=== PATIENT | female | born 1975 | race Asian ===

== ENCOUNTER → 2017-12-10 09:06 | Outpatient (CLI) | payer OTHER, SELFPAY ==
[2017-12-10 10:26] LABS: HEMOLYSIS < 15 (0-50); Iron 56 ug/dL (37-170)
[2017-12-10 10:38] LABS: Percent Iron Saturation 12 % (15-50); Total Iron Binding Capacity 451 ug/dL (265-497); Transferrin 349 mg/dL (206-381)
[2017-12-10 10:46] LABS: Vitamin D 25 Hydroxy (D3) 22.4 ng/mL (30.0-100.0)
[2017-12-10 10:51] LABS: Follicle Stimulating Hormone 6.27 mIU/mL
[2017-12-10 10:59] LABS: Thyroid Stimulating Hormone 4.28 uIU/mL (0.47-4.68)
[2017-12-10 11:04] LABS: Cancer Antigen 125 < 6 U/mL (0-35)
[2017-12-10 11:08] LABS: Ferritin 8.4 ng/mL (6.27-137)
== END ==
PROVIDERS: PCP Family Medicine; Visit Provider Internal Medicine
DX: R53.83 Other fatigue (principal); R14.0 Abdominal distension (gaseous); E61.1 Iron deficiency; E55.9 Vitamin D deficiency, unspecified
CPT/HCPCS: 36415; 82306; 82728; 83001; 83540; 83550; 84443; 86304

== ENCOUNTER → 2019-03-17 11:47 | Outpatient (CLI) | payer OTHER, SELFPAY ==
--- NOTE | 2019-03-17 11:49 | DI.RAD.S_ITS ---
PROCEDURE: XR KNEE LT 3V INDICATIONS: pain TECHNIQUE: 3 views of the knee were acquired. COMPARISON: None. FINDINGS: Bones: No fractures or dislocations. No suspicious bony lesions. Mild tricompartmental degenerative changes of the left knee noted. Soft tissues: No joint effusion. There is a punctate soft tissue calcification in the distal posterolateral left thigh. IMPRESSION: Mild tricompartmental degenerative changes of the left knee. Dictated by: Sukumar Swanson M.D. on 03/17/2019 at 14:42 Approved by: Sukumar Swanson M.D. on 03/17/2019 at 14:44
== END ==
PROVIDERS: PCP Family Medicine; Visit Provider Family Medicine
DX: M25.562 Pain in left knee (principal)
CPT/HCPCS: 73562

== ENCOUNTER → 2019-04-03 17:38 | Outpatient (CLI) | payer OTHER, SELFPAY ==
--- NOTE | 2019-04-03 17:40 | DI.MRI.S_ITS ---
PROCEDURE: MR KNEE LT WO CON INDICATIONS: Posterior left knee pain TECHNIQUE: Noncontrast sagittal PD fast spin echo and T2 fast spin echo with fat saturation, sagittal 3-D FLASH with fat saturation; coronal T1 spin echo and PD fast spin echo with fat saturation, and axial PD fast spin echo with fat saturation through the knee. COMPARISON: None. FINDINGS: Image quality: Excellent. Menisci: There is an oblique tear involving the posterior horn of medial meniscus extending to inferior articulating surface. No evidence of focal lateral meniscal tear. The meniscal root ligaments appear intact. Cruciate ligaments: The anterior and posterior cruciate ligaments appear intact. Medial structures: Local moderate grade MCL sprain is seen. The posterior oblique ligament, semimembranosus tendon insertions, oblique popliteal ligament, and meniscocapsular junction appear intact. Visualized portions of the pes anserinus tendons appear normal. No abnormal bursal fluid. Lateral structures: The lateral collateral ligament, long and short heads of the biceps femoris tendon appear intact. The popliteus tendon appears normal; the popliteofibular ligament appears intact. The posterosuperior and anteroinferior popliteomeniscal fascicles appear intact. The arcuate and fabellofibular ligaments appear intact, on either side of the lateral inferior geniculate artery. Iliotibial band appears normal. Anterior structures: The quadriceps and patellar tendons appear intact. Patellar alignment is normal. No femoral trochlear dysplasia or ventral trochlear prominence. No edema in the infrapatellar fat pad. 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 Chondromalacia involving apex of patella cartilage is also noted. Articulating cartilage and lateral femoral tibial compartment is intact. Joint space: There is moderate amount of joint fluid, no gross loose body. A 4.2 x 3.3 x 8.2 cm popliteal cyst is noted. Normal appearing synovial plicae are incidentally noted. IMPRESSION: 1. Subtle oblique tear involving the posterior horn of medial meniscus extending to inferior articulating surface. 2. No evidence of focal lateral meniscal tear. 3. 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 Low-grade chondromalacia involving apex of patella cartilage. 4. Cruciate ligaments are intact. Low to moderate MCL sprain. 5. Moderate amount of joint fluid enlarged popliteal cyst as above. Dictated by: Chris Sumner M.D. on 04/04/2019 at 8:11 Approved by: Chris Sumner M.D. on 04/04/2019 at 8:14
== END ==
PROVIDERS: PCP Family Medicine; Visit Provider Family Medicine
DX: M25.562 Pain in left knee (principal); S83.242A Other tear of medial meniscus, current injury, left knee, initial encounter; S83.412A Sprain of medial collateral ligament of left knee, initial encounter; M17.12 Unilateral primary osteoarthritis, left knee; M22.42 Chondromalacia patellae, left knee; M71.22 Synovial cyst of popliteal space [Baker], left knee
CPT/HCPCS: 73721

== ENCOUNTER → 2019-04-14 12:33 | Outpatient (CLI) | payer OTHER, SELFPAY ==
[2019-04-14 12:39] LABS: Bacteria Urine None Seen
[2019-04-14 13:02] LABS: Add Manual Diff / Slide Review NO; Basophils Absolute Auto 100 /uL (0-100); Basophils Percent Auto 0.7 % (0-2); Eosinophils Absolute Auto 100 /uL (0-450); Eosinophils Percent Auto 1.1 % (2-4); Hematocrit 35.7 % (36-46); Hemoglobin 11.5 g/dL (12.0-16.0); Lymphocytes Absolute Auto 3100 /uL (1100-4500); Lymphocytes Percent Auto 24.9 % (25-40); Mean Corpuscular HGB Conc 32.1 % (30-36); Mean Corpuscular Hemoglobin 23.9 PG (26-34); Mean Corpuscular Volume 74.4 fL (80-100); Monocytes Absolute Auto 900 /uL (0-900); Monocytes Percent Auto 7.2 % (3-14); Neutrophils Absolute Auto 8100 /uL (1500-7000); Neutrophils Percent Auto 66.1 % (50-75); Platelet Count 404 X10^3/uL (150-400); Red Cell Distribution Width 15.2 % (11.6-14.8); White Blood Cell Count 12.3 X10^3/uL (4.5-11.0)
[2019-04-14 13:03] LABS: Appearance Urine UA SL CLOUDY; Bilirubin Urine UA NEGATIVE (NEGATIVE); Color Urine UA YELLOW; Glucose Urine UA NEGATIVE (Negative); Ketones Urine UA NEGATIVE (NEGATIVE); Leukocyte Esterase Urine UA NEGATIVE (NEGATIVE); Nitrite Urine UA NEGATIVE (Negative); Occult Blood Urine UA 3+ (Negative); Protein Urine UA NEGATIVE (Negative); Specific Gravity Urine UA <=1.005 (1.000-1.035); Urobilinogen Urine UA 0.2 E.U./dL (0.2)
[2019-04-14 14:37] LABS: RBC Urine 30-100/HPF (0-5/HPF)
[2019-04-14 14:38] LABS: Culture Indicated Urine Cult Not Indicated; Squamous Epithelial Cell Urine 1-5 /HPF (0-5/HPF); WBC Urine 0-1/HPF (0-5/HPF)
== END ==
PROVIDERS: PCP Family Medicine; Visit Provider Family Medicine
DX: N92.0 Excessive and frequent menstruation with regular cycle (principal); N92.6 Irregular menstruation, unspecified; Z87.42 Personal history of other diseases of the female genital tract; N92.3 Ovulation bleeding
CPT/HCPCS: 36415; 81001; 85025

== ENCOUNTER → 2019-04-15 09:42 | Outpatient (CLI) | payer OTHER, SELFPAY ==
--- NOTE | 2019-04-15 09:44 | DI.US.S_ITS ---
PROCEDURE: US PELVIC COMPLETE INDICATIONS: SPOTTING BETWEEN MENSES, HX OF PCOS TECHNIQUE: Real-time scanning was performed of the pelvic organs, with image documentation. Additional endovaginal scanning was necessary due to incomplete visualization of the adnexal and endometrial structures by transabdominal scanning. COMPARISON: None. FINDINGS: Transabdominal scanning: Limited scanning through the kidneys shows no hydronephrosis. No pathologic free abdominal or pelvic fluid. Endovaginal scanning: Uterus: Uterus is normal in size at 8.5 x 4.8 x 6.0 cm. The endometrium measures 10.7 mm in combined thickness and is mildly heterogeneous. Mild vascularity involving the endometrium Ovaries: Normal size measures 3.4 x 2.1 x 2.3 cm on the right and 2.9 x 1.7 x 2.7 cm on the left. Multiple bilateral subcentimeter follicular cyst, right greater than left. Small amount of free fluid adjacent to the right ovary. IMPRESSION: Multiple bilateral subcentimeter cysts which can be associated with polycystic ovarian syndrome. Recommend clinical correlation. Mild vascularity and heterogeneity of the endometrium. Recommend short-term followup pelvic ultrasound in 6 weeks to assess for interval changes. Dictated by: Wilmer SAINZ Interpreted: Nubia Park MD on 04/15/2019 at 10:55 Approved by: Nubia Park M.D. on 04/15/2019 at 12:48
== END ==
PROVIDERS: PCP Family Medicine; Visit Provider Family Medicine
DX: N92.6 Irregular menstruation, unspecified (principal); N92.3 Ovulation bleeding; E28.2 Polycystic ovarian syndrome
CPT/HCPCS: 76830; 76856

== ENCOUNTER → 2019-04-22 11:38 | Outpatient (CLI) | payer OTHER, SELFPAY ==
[2019-04-22 12:26] LABS: Add Manual Diff / Slide Review NO; Basophils Absolute Auto 100 /uL (0-100); Basophils Percent Auto 0.6 % (0-2); Eosinophils Absolute Auto 100 /uL (0-450); Eosinophils Percent Auto 1.3 % (2-4); Hematocrit 32.5 % (36-46); Hemoglobin 10.5 g/dL (12.0-16.0); Lymphocytes Absolute Auto 2400 /uL (1100-4500); Lymphocytes Percent Auto 23.2 % (25-40); Mean Corpuscular HGB Conc 32.3 % (30-36); Mean Corpuscular Hemoglobin 24.2 PG (26-34); Mean Corpuscular Volume 74.9 fL (80-100); Monocytes Absolute Auto 700 /uL (0-900); Monocytes Percent Auto 6.6 % (3-14); Neutrophils Absolute Auto 7100 /uL (1500-7000); Neutrophils Percent Auto 68.3 % (50-75); Platelet Count 389 X10^3/uL (150-400); Red Blood Cell Count 4.35 X10^6/uL (4.0-5.2); Red Cell Distribution Width 15.4 % (11.6-14.8); White Blood Cell Count 10.4 X10^3/uL (4.5-11.0)
== END ==
PROVIDERS: PCP Family Medicine; Visit Provider Obstetrics & Gynecology
DX: N92.0 Excessive and frequent menstruation with regular cycle (principal)
CPT/HCPCS: 36415; 85025

== ENCOUNTER 2019-06-13 08:43 | Day surgery (SDC) | payer OTHER, SELFPAY ==
[2019-06-09 13:16] VITALS: BMI 34.0
[2019-06-13] VITALS (7 sets, daily range): BP systolic 93–127; BP diastolic 59–80; PULSE 58–80; RESP 15–20; TEMP 36.2–36.6; O2SAT 94–100; BMI 34.0
--- NOTE | 2019-06-13 | PATH_ITS ---
[facility] Accession Number: [id number] . 01 Material submitted: . endometrium - ENDOMETRIAL CURETTINGS/POLYP . 02 Diagnosis: Endometrial Curettings/Polyp: Portions of weakly proliferative and disordered proliferative endometrium; negative for glandular hyperplasia, cytologic atypia, and malignancy. Most tissue fragments demonstrate a pseudodecidualized stromal change, suggestive of exogenous hormone effect. Portion of endometrial polyp (1.6 cm); negative for glandular hyperplasia, cytologic atypia, and malignancy. MRV 06/16/2019 1604 Local . 02 Electronically signed: . Francisca Mejia MD, Pathologist NPI- [id number] . 01 Gross description: . Received in formalin, labeled with the patient's name Dang Dennis and endometrial curettings/polyp, are multiple fragments of rutledge, soft tissue measuring 2.5 x 1.5 x 0.7 cm in aggregate and one piece of rutledge, soft tissue measuring 1.6 x 1.2 x 0.6 cm. The fragments are entirely submitted in cassettes A1 and A2 in aggregate. The piece of tissue is entirely submitted in cassette A3. ([id number]) /FRR 06/14/2019 0942 Local . 02 Pathologist provided ICD-10: N93.9 . 02 CPT . 079264 Performed at: 01 [facility] [address] [place] [id number] MD Sulaiman Mcghee MD Phone: [phone] Performed at: 02 [facility] [address] [place], [place] [id number] MD Brittaney Lynn MD Phone: [phone]
[2019-06-13] MEDS: LACTATED RINGERS 1,000 ML 42 ML IV (09:04)
--- NOTE | 2019-06-13 09:28 | PM.PREOP ---
Pre-operative Note Interval Note History & Physical reviewed/Exam performed by Physician: Yes Changes to H&P: No
--- NOTE | 2019-06-13 09:38 | SUR.PREOP ---
Patient ambulating to bathroom to provide urine specimen for test.
--- NOTE | 2019-06-13 10:11 | SUR.OPER ---
Lithotomy on padded OR bed, head on pillow, arms secured on padded arm boards at <90 degrees abduction. Legs secured in padded yellow fins stirrups. Safety strap secured across abdomen
--- NOTE | 2019-06-13 11:06 | PM.OP.1 ---
Operative Date/Time/Diagnoses Date of procedure: 06/13/19 Time of procedure: 09:45 Pre-op diagnosis: Endometrial polyp Post-op diagnosis: same Procedure & Clinicians Procedure: Operative hysteroscopy with polypectomy, dilation and curettage Same procedure as scheduled: Yes Indications: endometrial polyp with abnormal uterine bleeding Surgeon: Gin Be Bus Driver School: [employer] Sainz Anesthesia Type: MAC +/- Operative Notes Findings: Retroverted uterus. Large endometrial polyp on hysteroscopy. Normal vulva and vagina. IV fluids: 900cc crystalloid Fluid deficit: 100ccs sorbitol Specimen(s): other (endometrial polyp/curettings) Estimated Blood Loss (mL): 10 Procedure in detail: Patient was taken operating room after proper consents were obtained. She was placed in the dorsal lithotomy position and prepped and draped in the normal sterile fashion. The patient had voided just prior to transfer, and had a negative urine test. A speculum was inserted in the vagina, and the cervix located. A single-tooth tenaculum was placed on the anterior lip of the cervix. The speculum was removed, and a right angle retractor used in the posterior fourchette for for visualization. Hegar dilators were used to serially dilate the cervix to 8 mm. The operative hysteroscope was inserted through the cervix, and the uterine cavity distended with sorbitol after clearance of clot. The above findings of a large endometrial polyp attached to the fundal and posterior young of the endometrial cavity were noted. The resectoscope was attached to the hysteroscope, and hysteroscope reintroduced and used to remove part of the polyp. Given the polyp size, the hysteroscope was removed and a polyp forceps used to grasp and remove the large part of the polyp. A gentle dilation and curettage was performed with further removal of polyp tissue. The hysteroscope was reintroduced, and it was noted that the polyp was now absent with a clean endometrial cavity. The hysteroscope was removed, and good hemostasis was noted. The tenaculum was removed from the anterior lip of the cervix with good hemostasis. The retractor was removed from the vagina. The patient was transported to the PACU in stable condition. Complications: none Post-operative Condition: stable Disposition: PACU Plan for aftercare: Patient for discharge home with routine follow up.
== END 2019-06-13 11:34 | disposition home or self-care (01) ==
PROVIDERS: PCP Family Medicine; Visit Provider Obstetrics & Gynecology
PROC: 0UDB8ZZ Extraction of Endometrium, Via Natural or Artificial Opening Endoscopic (ICD-10-PCS; CPT 58558; principal; 2019-06-13 09:45)
DX: N93.9 Abnormal uterine and vaginal bleeding, unspecified (principal); N84.0 Polyp of corpus uteri
CPT/HCPCS: 58558; J1100; J1885; J2405; J2704; J3010

== ENCOUNTER → 2019-06-20 13:11 | Outpatient (CLI) | payer OTHER, SELFPAY ==
[2019-06-20 13:53] LABS: Hematocrit 32.1 % (36-46); Hemoglobin 10.4 g/dL (12.0-16.0)
== END ==
PROVIDERS: PCP Family Medicine; Visit Provider Obstetrics & Gynecology
DX: N93.9 Abnormal uterine and vaginal bleeding, unspecified (principal)
CPT/HCPCS: 36415; 85014; 85018

== ENCOUNTER → 2019-07-09 11:08 | Outpatient (CLI) | payer OTHER, SELFPAY ==
[2019-07-09 11:35] LABS: WBC Urine None Seen (0-5/HPF)
[2019-07-09 14:26] LABS: Appearance Urine UA CLEAR; Bilirubin Urine UA NEGATIVE (NEGATIVE); Color Urine UA YELLOW; Glucose Urine UA NEGATIVE (Negative); Ketones Urine UA NEGATIVE (NEGATIVE); Leukocyte Esterase Urine UA NEGATIVE (NEGATIVE); Nitrite Urine UA NEGATIVE (Negative); Occult Blood Urine UA TRACE-LYSED (Negative); Protein Urine UA NEGATIVE (Negative); Specific Gravity Urine UA <=1.005 (1.000-1.035); Urobilinogen Urine UA 0.2 E.U./dL (0.2)
[2019-07-09 14:41] LABS: RBC Urine 0-1/HPF (0-5/HPF); Squamous Epithelial Cell Urine 1-5 /HPF (0-5/HPF)
[2019-07-09 14:42] LABS: Bacteria Urine Few (2-10); Culture Indicated Urine Cult Not Indicated
== END ==
PROVIDERS: Family Provider Family Medicine; PCP Family Medicine; Visit Provider Obstetrics & Gynecology
DX: R33.9 Retention of urine, unspecified (principal)
CPT/HCPCS: 81001

== ENCOUNTER → 2019-12-22 12:08 | Outpatient (CLI) | payer OTHER, SELFPAY ==
--- NOTE | 2019-12-22 12:10 | DI.RAD.S_ITS ---
PROCEDURE: XR FOOT RT MIN 3V INDICATIONS: Joint pain TECHNIQUE: 3 views of the foot were acquired. COMPARISON: None. FINDINGS: Bones: No fractures or dislocations. No suspicious bony lesions. Marked plantar and calcaneal spurring. Diffuse hindfoot and midfoot degenerative sclerosis and spurring. Soft tissues: No tibiotalar joint effusion. Achilles tendon appears normal. IMPRESSION: Plantar and posterior calcaneal spurring. Diffuse hindfoot and midfoot joint degeneration. Dictated by: Campos Keene M.D. on 12/22/2019 at 14:29 Approved by: Campos Keene M.D. on 12/22/2019 at 14:32
--- NOTE | 2019-12-22 12:10 | DI.RAD.S_ITS ---
PROCEDURE: XR FOOT LT MIN 3V INDICATIONS: Joint pain TECHNIQUE: 3 views of the foot were acquired. COMPARISON: [facility], CR, FOOT COMP MIN 3VW (LT), 12/09/2014, 14:19. FINDINGS: Bones: No fractures or dislocations. No suspicious bony lesions. First MTP joint degeneration. Midfoot and hindfoot screw fixation, with multiple fractured screw fragments are again noted. There is plantar and posterior calcaneal spurring. Degenerative midfoot and hindfoot sclerosis and spurring. There is probable at least partial bridging ossification of the medial longitudinal arch, although not well seen Soft tissues: No tibiotalar joint effusion. Achilles tendon appears normal. IMPRESSION: Overall, grossly unchanged examination since 12/09/14. Dictated by: Campos Keene M.D. on 12/22/2019 at 14:20 Approved by: Campos Keene M.D. on 12/22/2019 at 14:26
--- NOTE | 2019-12-22 12:10 | DI.RAD.S_ITS ---
PROCEDURE: XR ANKLE RT MIN 3V INDICATIONS: Joint pain TECHNIQUE: 3 views of the ankle were acquired. COMPARISON: None. FINDINGS: Bones: No fractures or dislocations. Ankle mortise is normally aligned. No suspicious bony lesions. Large plantar and posterior calcaneal spur. Diffuse hindfoot and midfoot sclerosis and degenerative spurring. Soft tissues: No tibiotalar joint effusion. Achilles tendon appears normal. IMPRESSION: Large plantar and posterior calcaneal spur Dictated by: Campos Keene M.D. on 12/22/2019 at 14:37 Approved by: Campos Keene M.D. on 12/22/2019 at 14:38
--- NOTE | 2019-12-22 12:10 | DI.RAD.S_ITS ---
PROCEDURE: XR ANKLE LT MIN 3V INDICATIONS: Joint pain TECHNIQUE: 3 views of the ankle were acquired. COMPARISON: [facility], , XR FOOT LT MIN 3V, 12/22/2019, 12:20. FINDINGS: Bones: No fractures or dislocations. Ankle mortise is normally aligned. No suspicious bony lesions. There is screws fixation of the hindfoot and midfoot with grossly unchanged appearance. Several fractured screws are again noted. There is grossly unchanged alignment. Tibiotalar joint degeneration and plantar and posterior calcaneal spurring. Soft tissues: No tibiotalar joint effusion. Achilles tendon appears normal. IMPRESSION: Postsurgical changes as above. Grossly unchanged alignment. Dictated by: Campos Keene M.D. on 12/22/2019 at 14:26 Approved by: Campos Keene M.D. on 12/22/2019 at 14:29
--- NOTE | 2019-12-22 12:10 | DI.RAD.S_ITS ---
PROCEDURE: XR CERVICAL SPINE 2V OR 3V INDICATIONS: Joint pain TECHNIQUE: 3 view(s) of the cervical spine were acquired. COMPARISON: None. FINDINGS: Bones: No fractures or dislocations to the T1 level. The lateral masses of C1 appear intact on the odontoid view. No suspicious bony lesions. Interbody cage graft present at C6-C7 with anterior retaining pins. There is expected postoperative alignment. Straightening of the normal lordotic curvature. Multilevel degenerative endplate sclerosis and spurring. Diffuse facet arthropathy. Diffuse moderate narrowing of the remaining cervical disc spaces Soft tissues: No prevertebral soft tissue swelling. IMPRESSION: Postsurgical changes at C6-C7 as above. Expected postoperative alignment. Straightening of the normal lordotic curvature. Diffuse moderate cervical spondylosis and facet arthropathy Dictated by: Campos Keene M.D. on 12/22/2019 at 14:38 Approved by: Campos Keene M.D. on 12/22/2019 at 14:40
[2019-12-22 14:05] LABS: Add Manual Diff / Slide Review NO; Basophils Absolute Auto 100 /uL (0-100); Basophils Percent Auto 1.3 % (0-2); Eosinophils Absolute Auto 200 /uL (0-450); Eosinophils Percent Auto 1.4 % (2-4); Hematocrit 30.6 % (36-46); Hemoglobin 9.7 g/dL (12.0-16.0); Lymphocytes Absolute Auto 2600 /uL (1100-4500); Lymphocytes Percent Auto 23.3 % (25-40); Mean Corpuscular HGB Conc 31.6 % (30-36); Mean Corpuscular Hemoglobin 21.2 PG (26-34); Monocytes Absolute Auto 700 /uL (0-900); Monocytes Percent Auto 5.9 % (3-14); Neutrophils Absolute Auto 7600 /uL (1500-7000); Neutrophils Percent Auto 68.1 % (50-75); Platelet Count 444 X10^3/uL (150-400); Red Blood Cell Count 4.56 X10^6/uL (4.0-5.2); Red Cell Distribution Width 15.9 % (11.6-14.8); White Blood Cell Count 11.2 X10^3/uL (4.5-11.0)
[2019-12-22 14:26] LABS: Anisocytosis 1+; Poikilocytosis 2+
[2019-12-22 14:27] LABS: Microcytosis 1+; Ovalocytes 1+
[2019-12-22 15:38] LABS: Alanine Aminotransferase 13 IU/L (<35); Albumin 4.2 g/dL (3.5-5.0); Albumin Globulin Ratio 1.2 (1.0-2.8); Alkaline Phosphatase 53 U/L (38-126); Aspartate Aminotransferase 23 IU/L (14-36); BUN Creatinine Ratio 16.7 (6-22); Bilirubin Total 0.3 mg/dL (0.2-1.3); Blood Urea Nitrogen 11 mg/dL (7-17); Calcium 9.5 mg/dL (8.4-10.2); Carbon Dioxide 25 mmol/L (22-32); Chloride 104 mmol/L (98-107); Cholesterol 175 mg/dL (140-199); Estimated Glomerular Filt Rate > 60.0 mL/min (>60); Globulin 3.4 g/dL (1.7-4.1); Glucose 102 mg/dL (70-100); HDL Cholesterol 32 mg/dL (40-60); HEMOLYSIS < 15 (0-50); LDL Cholesterol Calculated 96 mg/dL (<100); Potassium 3.7 mmol/L (3.4-5.1); Sodium 137 mmol/L (137-145); Total Protein 7.6 g/dL (6.3-8.2); Triglycerides 235 mg/dL (35-150)
--- NOTE | 2019-12-30 13:09 | ONC.MSW ---
Description: Initial Referral Navigation Activity: Reviewed pt's referral for acuity, medical status, and immediate needs. Forwarded to scheduling for next available new consult time.
== END ==
PROVIDERS: Family Provider Family Medicine; PCP Family Medicine; Referring Provider Family Medicine; Visit Provider Family Medicine
DX: M25.50 Pain in unspecified joint (principal); D64.9 Anemia, unspecified; M47.812 Spondylosis without myelopathy or radiculopathy, cervical region; M77.31 Calcaneal spur, right foot; M19.072 Primary osteoarthritis, left ankle and foot; M19.071 Primary osteoarthritis, right ankle and foot; Z98.1 Arthrodesis status
CPT/HCPCS: 36415; 72040; 73610; 73630; 80053; 80061; 82728; 84443; 85025

== ENCOUNTER → 2019-12-22 17:18 | Outpatient (CLI) | payer OTHER, SELFPAY ==
[2019-12-22 20:02] LABS: Ferritin 5 ng/mL (6-137)
== END ==
PROVIDERS: Family Provider Family Medicine; PCP Family Medicine; Visit Provider Family Medicine
DX: D64.9 Anemia, unspecified (principal)
CPT/HCPCS: 82728

== ENCOUNTER → 2020-01-31 09:41 | Outpatient (CLI) | payer OTHER, SELFPAY ==
[2020-01-31 10:06] LABS: Add Manual Diff / Slide Review NO; Basophils Absolute Auto 100 /uL (0-100); Basophils Percent Auto 0.8 % (0-2); Eosinophils Absolute Auto 100 /uL (0-450); Eosinophils Percent Auto 1.2 % (2-4); Hematocrit 28.3 % (36-46); Hemoglobin 8.9 g/dL (12.0-16.0); Lymphocytes Absolute Auto 2000 /uL (1100-4500); Lymphocytes Percent Auto 21.2 % (25-40); Mean Corpuscular HGB Conc 31.4 % (30-36); Mean Corpuscular Hemoglobin 20.4 PG (26-34); Mean Corpuscular Volume 65.1 fL (80-100); Monocytes Absolute Auto 400 /uL (0-900); Monocytes Percent Auto 4.6 % (3-14); Neutrophils Absolute Auto 6700 /uL (1500-7000); Neutrophils Percent Auto 72.2 % (50-75); Platelet Count 437 X10^3/uL (150-400); Red Blood Cell Count 4.34 X10^6/uL (4.0-5.2); Red Cell Distribution Width 17.1 % (11.6-14.8); White Blood Cell Count 9.3 X10^3/uL (4.5-11.0)
[2020-01-31 10:15] LABS: Alanine Aminotransferase 15 IU/L (<35); Albumin Globulin Ratio 1.3 (1.0-2.8); Alkaline Phosphatase 62 U/L (38-126); Aspartate Aminotransferase 19 IU/L (14-36); BUN Creatinine Ratio 16.2 (6-22); Bilirubin Total 0.4 mg/dL (0.2-1.3); Blood Urea Nitrogen 11 mg/dL (7-17); Calcium 8.8 mg/dL (8.4-10.2); Carbon Dioxide 21 mmol/L (22-32); Chloride 108 mmol/L (98-107); Estimated Glomerular Filt Rate > 60.0 mL/min (>60); Globulin 3.1 g/dL (1.7-4.1); Glucose 153 mg/dL (70-100); HEMOLYSIS < 15 (0-50); Sodium 137 mmol/L (137-145); Total Protein 7.1 g/dL (6.3-8.2)
[2020-01-31 10:20] LABS: HEMOLYSIS < 15 (0-50); Iron 32 ug/dL (37-170)
[2020-01-31 10:23] LABS: Microcytosis 3+; Rouleaux 1+
[2020-01-31 10:31] LABS: Percent Iron Saturation 7 % (15-50); Total Iron Binding Capacity 473 ug/dL (265-497); Transferrin 365 mg/dL (206-381)
[2020-01-31 10:50] LABS: Ferritin 6 ng/mL (6-137)
== END ==
PROVIDERS: Family Provider Family Medicine; PCP Family Medicine; Referring Provider Internal Medicine Hematology & Oncology; Visit Provider Internal Medicine Hematology & Oncology
DX: D64.9 Anemia, unspecified (principal)
CPT/HCPCS: 36415; 80053; 82728; 83540; 83550; 85025

== ENCOUNTER → 2020-05-14 12:14 | Outpatient (CLI) | payer OTHER, SELFPAY ==
--- NOTE | 2020-05-14 12:15 | DI.US.S_ITS ---
PROCEDURE: US PELVIC COMPLETE INDICATIONS: Bleeding/IUD placement TECHNIQUE: Real-time scanning was performed of the pelvic organs, with image documentation. Additional endovaginal scanning was necessary due to incomplete visualization of the adnexal and endometrial structures by transabdominal scanning. COMPARISON: [facility], US, US PELVIC COMPLETE, 04/23/2020, 13:17. FINDINGS: Transabdominal scanning: Limited scanning through the kidneys shows no hydronephrosis. No pathologic free abdominal or pelvic fluid. Endovaginal scanning: Uterus: The uterus is retroverted measuring 8.4 x 6.1 x 6.3 cm. An IUD is seen within the cervix. The endometrium measures 8.4 mm in combined thickness. Ovaries: The right ovary measures 3.5 x 2.0 x 2.0 cm and has a normal appearance. The left ovary measures 2.4 x 1.7 x 1.5 cm and has a normal appearance. IMPRESSION: 1. IUD is seen within the cervix. 2. No acute abnormality. Dictated by: Bob Aguirre M.D. on 05/14/2020 at 14:00 Approved by: Bob Aguirre M.D. on 05/14/2020 at 14:07
== END ==
PROVIDERS: Family Provider Family Medicine; PCP Family Medicine; Referring Provider Obstetrics & Gynecology; Visit Provider Obstetrics & Gynecology
DX: N93.9 Abnormal uterine and vaginal bleeding, unspecified (principal); Z97.5 Presence of (intrauterine) contraceptive device
CPT/HCPCS: 76830; 76856

== ENCOUNTER → 2020-06-10 09:57 | Outpatient (CLI) | payer OTHER, SELFPAY ==
[2020-06-10 10:26] LABS: COVID19 -Nasal RAPID Negative (Negative)
== END ==
PROVIDERS: Family Provider Family Medicine; PCP Family Medicine; Visit Provider Obstetrics & Gynecology
DX: Z03.818 Encounter for observation for suspected exposure to other biological agents ruled out (principal)
CPT/HCPCS: 87635

== ENCOUNTER 2020-06-11 06:09 | Day surgery (SDC) | payer OTHER, SELFPAY ==
[2020-06-09 08:07] VITALS: BMI 34.3
[2020-06-11] VITALS (11 sets, daily range): BP systolic 102–126; BP diastolic 56–84; PULSE 74–105; RESP 14–22; TEMP 36.1–36.7; O2SAT 95–100; BMI 34.0
--- NOTE | 2020-06-11 | PATH_ITS ---
[facility] Accession Number: [id number] . 01 Material submitted: . uterus - UTERUS AND REMNANTS OF BILATERAL FALLOPIAN TUBES . 01 Clinical history: . OPB . 02 Diagnosis: Uterus and Remnants of Bilateral Fallopian Tubes, Supracervical Hysterectomy and Bilateral Salpingectomy: Benign endometrial polyps. Minute focus of simple hyperplasia without atypia. Inactive/noncycling endometrium. Bilateral fallopian tubes with paratubal cysts. Negative for malignancy or atypical hyperplasia. [facility] 06/16/2020 1723 Local . 02 Electronically signed: . Brittaney Lynn MD, Pathologist NPI- [id number] . 01 Gross description: . The specimen is received in formalin, labeled uterus and remnants of bilateral fallopian tubes and consists of a 134 gram fragmented uterus, measuring 13.0 x 12.0 x 5.0 cm in aggregate. The cervix is not identified. The serosa is rutledge-pink and smooth. Sectioning reveals a rutledge-pink glistening endometrium with a possible 1.0 x 1.0 x 0.5 cm polyp. The myometrium is rutledge-pink and trabeculated. Upon further sectioning, an additional possible polyp is identified, measuring 1.5 x 1.0 x 0.6 cm. Two detached fallopian tubes are identified, measuring 4.0 cm in length x 0.6 cm in diameter, and 5.2 cm in length x 0.6 cm in diameter. The serosa is rutledge-pink and smooth with multiple paratubal cysts ranging from 0.1 to 1.5 cm. Sectioning reveals a rutledge mucosa and a stellate lumen, measuring 0.2 cm in diameter. X Ray Operator sections are submitted. . A1-A3 - Polyp with endomyometrium. A4 - Additional polyp. A5-A6 - Fallopian tubes, investment representative cross-sections and bisected fimbria. ([id number]) . Additional sections of endometrium and myometrium (not full thickness) are submitted in cassettes A7-A16 on 06/15/2020. ([id number]) /[facility] 06/16/2020 1623 Local . 02 Pathologist provided ICD-10: N93.9 . 02 CPT . 968838 Performed at: 01 [facility] [address] [place] [address], [place], [place] [id number] MD Sulaiman Mcghee MD Phone: [phone] Performed at: 02 [facility] [address] [place], [place] [id number] MD Brittaney Lynn MD Phone: [phone]
[2020-06-11 07:04] LABS: Add Manual Diff / Slide Review NO; Basophils Absolute Auto 200 /uL (0-100); Basophils Percent Auto 1.4 % (0-2); Eosinophils Absolute Auto 200 /uL (0-450); Eosinophils Percent Auto 1.7 % (2-4); Hematocrit 33.5 % (36-46); Hemoglobin 11.1 g/dL (12.0-16.0); Lymphocytes Absolute Auto 2600 /uL (1100-4500); Lymphocytes Percent Auto 25.3 % (25-40); Mean Corpuscular Hemoglobin 25.8 PG (26-34); Mean Corpuscular Volume 78.2 fL (80-100); Monocytes Absolute Auto 700 /uL (0-900); Monocytes Percent Auto 6.8 % (3-14); Neutrophils Absolute Auto 6700 /uL (1500-7000); Neutrophils Percent Auto 64.8 % (50-75); Platelet Count 364 X10^3/uL (150-400); Red Blood Cell Count 4.29 X10^6/uL (4.0-5.2); Red Cell Distribution Width 13.9 % (11.6-14.8); White Blood Cell Count 10.4 X10^3/uL (4.5-11.0)
[2020-06-11] MEDS: LACTATED RINGERS 1,000 ML 100 ML IV (07:04)
--- NOTE | 2020-06-11 07:41 | PM.PREOP ---
Pre-operative Note COVID-19 COVID-19 status: Negative Result date/Date tested (Pos, Neg/Pending): 06/10/20 Interval Note History & Physical reviewed/Exam performed by Physician: Yes Changes to H&P: No
[2020-06-11] MEDS: CEFAZOLIN 2 GM/100 ML FROZ.PIGGY IV (07:45)
--- NOTE | 2020-06-11 08:17 | SUR.OPER ---
Lithotomy on padded OR bed. Cleaton Pad Positioner under torso. Head on foam and gel donut, arms padded and tucked at sides. Legs secured in padded yellow fins stirrups.
[2020-06-11] MEDS: BUPIVACAINE 0.5% W/ EPI (PF) 30 ML VIAL INJ (08:28)
[2020-06-11] MEDS: LACTATED RINGERS 1,000 ML 42 ML IV (08:31)
[2020-06-11] MEDS: ROPIVACAINE 0.2% PF 2 MG/ML 10ML AMP 20 ML INJ (08:34)
--- NOTE | 2020-06-11 09:42 | PM.OP.1 ---
Operative Date/Time/Diagnoses Date of procedure: 06/11/20 Time of procedure: 07:45 Pre-op diagnosis: Abnormal uterine bleeding Post-op diagnosis: same Procedure & Clinicians Procedure: Laparoscopic supracervical hysterectomy and bilateral salpingectomy Same procedure as scheduled: Yes Indications: Abnormal uterine bleeding Surgeon: Gin Be Electrical Experimental Mechanic: Avelina Sainz Anesthesia Type: General Operative Notes Findings: Retroverted uterus, otherwise normal. Normal uterus. Evidence of prior bilateral tubal ligation. Normal vulva, vagina, cervix. Closure Type: primary Specimen(s): other (Uterus, remnants of bilateral fallopian tubes) Applied: catheter Estimated Blood Loss (mL): 50 Procedure in detail: After proper consents were obtained, the patient was taken to the operating room. General anesthesia was induced, and she was placed in the dorsal lithotomy position and prepped and draped in the normal sterile fashion. A baird catheter was placed, and a speculum placed in the patient's vagina. A single tooth tenaculum was applied to the anterior lip of the cervix, and hegar dilators used to dilate the cervix to 6mm with gentle pressure. A uterine manipulator was gently inserted and the balloon inflated to 5ccs. The tenaculum and speculum were removed from the vagina. Attention was then turned to the abdomen, where 1cc of .5% bupivacaine with epinephrine was used to infiltrate the skin just below the umbilicus. A scalpel was used to make a 5mm incision, towel clamps were applied and used to elevate the anterior abdominal wall, and a Veress needle gently inserted into the abdomen. Intraperitoneal placement was confirmed with a drop of normal saline passed through the veress needle with gravity, and CO2 used to insufflate the abdomen to 15mmHg. A 5mm trocar and sleeve were placed into the abdomen through this incision, using the towel clamps to elevate the abdominal wall, and intraperitoneal placement was confirmed visually with insertion of the laparoscope. Abdominal survey at this time was normal, and lateral ports were placed under direct visualization. These were placed on the left and right, 8cm from the umbilicus and after infiltration of 1mm of local anesthetic as above. The patient was placed in trendelenburg position, and a blunt probe used to gently push the bowel out of the pelvis. The ovaries and fallopian tube remnants appeared normal bilaterally. A atraumatic grasper was used to elevate the remnant of the right fallopian tube, and a PK device was used to amputate this remnan. The uteroovarian ligament and round ligaments were then cauterized and transected with this device, the anterior and posterior leaflets of the broad ligament and skeletonized and the vesicouterine peritoneum identified. This was transected and a bladder flap created with the PK device and gentle traction. The uterine arteries were identified, and cauterized and cut at the level of the internal os. The same procedure was performed on the patient's left, without complication. The Rachna loop was inserted into the abdomen, and placed around the uterus at the level of the internal os. After careful inspection for proper placement anteriorly and posteriorly, this device was used to amputate the uterine fundus without complication. The PK device was used to ablate the cervical os, and hemostasis achieved where necessary with the PK device. Attention was then turned to the abdominal wall, where .5% movie of a cane was used to infiltrate a midline area 2cm above the pubic symphesis. A scalpel was used to make a 3cm minilaparotomy, and a 15mm trocar and sleeve inserted under direct visualization into the abdominal cavity. A 12mm endocatch bag was placed through this port under direct visualization, and carefully deployed into the abdomen. The uterus was placed in the bag, and the bag was closed and removed under direct visualization of all parts of the bag. The open end of the bag was removed through the port, the port was removed, and the open end of the endocatch bag brought through the incision. A small Gary device was inserted to protect the incision and skin, and the uterus was brought to the opening of the incision and carefully hand morcellated out through the incision using a scalpel. After removal of the uterus, the gary device and endocatch bag were removed. The fascia at the minilaparotomy incision was closed using 0 vicryl in a running fashion. The abdomen was re-insufflated, hemostasis at the operative sites assured, and a repeat abdominal survey was normal. The laparoscope was removed from the abdomen, the insufflating gas allowed to escape, and the ports removed. An interrupted suture was used at the mini-laparotomy to close the subcutaneous space in an interrupted fashion, and the skin at all 4 incisions closed with 4-0 biosyn, then covered with steri strips and bandages. The baird catheter was removed from the bladder. The patient tolerated the procedure well, all counts were correct, 2g of Ancef were given at the beginning of the case and a test was negative on admission. The patient was transported to PACU in stable condition. IVF: 1200ccs LR UOP: 400ccs clear yellow urine EBL: 50ccs Complications: none Post-operative Condition: stable Disposition: PACU Plan for aftercare: Routine postoperative care, considering discharge this evening versus tomorrow morning.
[2020-06-11] MEDS: ONDANSETRON 4 MG/2 ML INJ IV (10:33)
[2020-06-11] MEDS: OXYCODONE IR 5 MG TABLET PO (13:08)
--- NOTE | 2020-06-11 13:54 | PC.NURSE ---
Addendum entered by Fany Mayen R.N. 06/11/20 14:32: Oxycodone x1 for pain, Spouse brought food from home, per Pt preference. No further c/o nausea. Pain well controlled @ 08/11 at present. Pt able to get up with 1 min assist to BR to void pink tinge urine. No c/o dysuria. Pt up to chair and feeling better, Dr tucker called for update @ 1430, but will be back after clinic ~1630 to assess Pt for d/c or overnight stay. Original Note: Admission Pt arrived from PACU Alert, but drowsy. Able to make needs known, declined IVF. Nauseated, medicated per AUG. Spouse at bedside. Lap sites to ABD CDI. No flatus and noBM post op.
--- NOTE | 2020-06-11 14:39 | PC.NURSE ---
Poss d/c: Pt and dtr Octavia wanting to take pt home. Octavia has filled out the information for hospice. They plan on delivering a bed for pt tomorrow. Pt and Octavia requesting baird out. This was done. Pt was repositioned and a brief was placed under her, this caused pain in her lt upper leg, tylenol given but unsure if this will be enough for pt when she returns home. Has not received morphine this admit and unknown if this will be to much for her - getting into and out of a car and sedation. CÉSAR Quispe reported bls transport is not covered and would have to be paid for privately if needs amb. Dtr aware and would like to try to get pt home with out one. Pt is drowsy, arouses when name called but otherwise falls asleep. IV left in if pt should need some morphine if it becomes to painful. Dr. Hui's office called and made aware pt may need something stronger for pain due to mobility needs and lt upper leg is painful.
[2020-06-11] MEDS: IBUPROFEN 600 MG TABLET PO (16:38)
--- NOTE | 2020-06-11 17:28 | P.DS_ITS ---
History of Present Illness History of Present Illness Date Patient Seen: 06/11/20 Time Patient Seen: 17:29 Chief complaint: OPB Narrative: This patient is postop day 0 status post uncomplicated laparoscopic supracervical hysterectomy and bilateral salpingectomy. She is recovering well postoperatively, ambulating, voiding, tolerating p.o., good pain control on p.o. medications. Given the pandemic, the patient and her partner would like discharge home on postop day 0 with close outpatient follow-up. Discharge Providers Provider Discharge Date: 06/11/20 Primary care physician: Jerry Chen MD Consults: 06/11/20 09:54 Consult to Discharge Planning Routine Comment: Discharge provider: Gin Be MD Summary Hospital Course Discharge Diagnosis: Status post laparoscopic supracervical hysterectomy Hospital Course: This patient was admitted on the morning of postop day 0 and underwent an uncomplicated laparoscopic supracervical hysterectomy. The patient met postoperative goals well and had stable vital signs, was well-appearing clinically, and desired discharge this evening. Precautions for return were discussed. Status at Discharge Cognitive/behavioral status at discharge: oriented Functional status at discharge: independent ambulation Overall status at discharge: patient is progressing back to baseline Exam Vital Signs (past 8 hours): - 06/11/20 09:30 06/11/20 09:35 06/11/20 09:43 Temperature 97.6 F Pulse Rate 84 85 105 H Respiratory Rate 22 22 18 Blood Pressure 126/76 113/56 L 105/56 L Pulse Oximetry 96 97 96 06/11/20 09:54 06/11/20 10:20 06/11/20 10:50 Temperature 97.8 F 97.7 F 97.5 F L Pulse Rate 75 100 H 74 Respiratory Rate 16 15 14 Blood Pressure 102/66 126/57 L 106/68 Pulse Oximetry 95 100 100 06/11/20 11:50 06/11/20 12:50 06/11/20 16:13 Temperature 97.6 F 98.0 F 97.7 F Pulse Rate 75 75 81 Respiratory Rate 15 14 16 Blood Pressure 104/63 120/66 109/60 Pulse Oximetry 99 100 98 Oxygen Delivery Method Room Air Oxygen Flow Rate 0 Objective Labs Result Diagrams: 06/11/20 06:55 Labs: Laboratory Results - last 24 hr 06/11/20 06/11/20 06:55 06:55 WBC 10.4 RBC 4.29 Hgb 11.1 L Hct 33.5 L MCV 78.2 L MCH 25.8 L MCHC 33.0 RDW 13.9 Plt Count 364 Neut % (Auto) 64.8 Lymph % (Auto) 25.3 [place] % (Auto) 6.8 Eos % (Auto) 1.7 L Baso % (Auto) 1.4 Neut # (Auto) 6700 Lymph # (Auto) 2600 [place] # (Auto) 700 Eos # (Auto) 200 Baso # (Auto) 200 H Blood Type A Positive Antibody Screen Negative [facility] Medical History Foot pain (~2010) Irregular menstrual cycle (~1989) Surgical History History of foot surgery (~2010) History of foot surgery (~2012) Status post delivery (~2005) Status post delivery (~2008) Status post discectomy (~2010) Status post hysteroscopic polypectomy (06/13/19) Social History household members: spouse and children Smoking Status: Never smoker alcohol intake: current substance use type: marijuana (for feet pain.) Discharge Assessment & Plan Assessment and Plan Assessment: This patient is meeting postoperative goals appropriately for the evening of postop day 0, and would like discharge home. Precautions for return were stressed, and the patient will have outpatient follow-up in 1 week. Plan of Treatment: Home with p.o. pain medications and scheduled precautions. Discharge Plan Discharge Plan Patient Disposition: Home Discharge orders & Medications Discharge Orders: Discharge (Order); Ordered 06/11/20 Ordered By: Gin Be Prescriptions: New acetaminophen 325 mg capsule 650 mg PO Q6H PRN (Reason: pain) Qty: 30 RF: 0 oxycodone 5 mg tablet 5 mg PO Q6H PRN (Reason: pain) Qty: 20 RF: 0 Continued Disabled Parking Permit 1 hussein Not Applicable DIRECTED RF: 0 ibuprofen 800 mg Tablet 800 mg PO Q6H PRN (Reason: Pain (Scale Score 1-3)) RF: 0 Discontinued medroxyprogesterone 10 mg tablet 20 mg PO .COMPLEX Qty: 100 RF: 0 acetaminophen 325 mg Capsule 325 mg PO QID PRN (Reason: Pain) RF: 0 Follow up/Referrals: Jerry Chen MD [Primary Care Provider] - Gin Be MD [Physician] - 1 Week (postop check) Diet/Activity/Treatments Diet: Regular Activity: Nothing in the vagina for 6 weeks. Avoid lifting more than 10 lb for 6 weeks. If you have increasing bleeding, fevers, chills, abdominal pain, cannot pass gas, cannot eat without nausea, or any other symptoms or concerns, call or come to the emergency room. Skin/Wound/Dressing Care Report to your healthcare provider any signs of infection, such as:: chills, fever, night sweats, increased pain, unusual drainage and unusual redness Dressing: Remove bandages tomorrow. Remove Steri-Strips in 1 week, earlier if they become so ill. Visit Report/Discharge Packet Instructions: DI for Hysterectomy, DI for Laparoscopy Discharge Data Primary Care Provider: Jerry Chen Attending Provider: Gin Be
--- NOTE | 2020-06-11 17:44 | PC.NURSE ---
Pt is A&)x4, pleasant and cooperative w/ staff and able to make needs known. Patient expressed desire to d/c home today. Dr. Be aware and okay with plan of care. Patient IV d/c, paperwork reviewed and spouse to help pt. get dressed. Pt escorted out via WC to personal vehicle. Pt leaves in stable condition, VSS.
== END 2020-06-11 18:00 | disposition home or self-care (01) ==
LOC: OR 06:10 → AC 06:42
PROVIDERS: Family Provider Family Medicine; PCP Family Medicine; Referring Provider Family Medicine; Visit Provider Obstetrics & Gynecology
PROC: 0UT94ZL Resection of Uterus, Supracervical, Percutaneous Endoscopic Approach (ICD-10-PCS; CPT 58542; principal; 2020-06-11 07:45)
DX: N83.8 Other noninflammatory disorders of ovary, fallopian tube and broad ligament (principal)
CPT/HCPCS: 58542; 36415; 81025; 85025; 86850; 86900; 86901; J0330; J0690; J1100; J1885; J2405; J2704; J2795; J3010

== ENCOUNTER → 2020-07-16 10:21 | Outpatient (CLI) | payer OTHER, SELFPAY ==
[2020-06-11 06:50] VITALS: BMI 34.0
[2020-07-16] MEDS: COVID-19 VACC(MODERNA-1)/PF 100 MCG/0.5 ML VIAL IM (10:26)
== END ==
PROVIDERS: Family Provider Family Medicine; PCP Family Medicine; Visit Provider Internal Medicine
DX: Z23 Encounter for immunization (principal)
CPT/HCPCS: 0011A; 91301

== ENCOUNTER → 2020-08-13 10:15 | Outpatient (CLI) | payer OTHER, SELFPAY ==
[2020-06-11 06:50] VITALS: BMI 34.0
[2020-08-13] MEDS: COVID-19 VACC #2, MRNA(MOD) 100 MCG/0.5 ML VIAL IM (10:22)
== END ==
PROVIDERS: Family Provider Family Medicine; PCP Family Medicine; Visit Provider Internal Medicine
DX: Z23 Encounter for immunization (principal)
CPT/HCPCS: 0012A; 91301

== ENCOUNTER → 2020-12-29 15:55 | Outpatient (CLI) | payer OTHER, SELFPAY ==
[2020-06-11 06:50] VITALS: BMI 34.0
--- NOTE | 2020-12-29 15:56 | DI.RAD.S_ITS ---
PROCEDURE: XR FOOT LT MIN 3V INDICATIONS: left foot and ankle TECHNIQUE: 3 views of the foot were acquired. COMPARISON: [facility], CR, XR FOOT LT MIN 3V, 12/22/2019, 12:20. FINDINGS: Bones: No fractures or dislocations. No suspicious bony lesions. Midfoot and hindfoot screw fixation again noted with hardware in unchanged positions. Multiple fractured screws are again noted appearing grossly unchanged from prior examination. Background osteoarthritic changes redemonstrated. Prominent plantar calcaneal enthesophyte. Soft tissues: No tibiotalar joint effusion. Achilles tendon appears normal. IMPRESSION: Stable postsurgical sequelae and bony alignment compared to prior exam. Dictated by: Wilmer POWERS Interpreted: Shantanu Burr MD on 12/29/2020 at 16:23 Transcribed by: ELEAZAR on 12/29/2020 at 16:24 Approved by: Shantanu Burr M.D. on 12/29/2020 at 18:09
--- NOTE | 2020-12-29 15:56 | DI.RAD.S_ITS ---
PROCEDURE: XR ANKLE LT MIN 3V INDICATIONS: left foot and ankle TECHNIQUE: 3 views of the ankle were acquired. COMPARISON: [facility], CR, XR ANKLE LT MIN 3V, 12/22/2019, 12:20. FINDINGS: Bones: No fractures or dislocations. Ankle mortise is normally aligned. No suspicious bony lesions. Hindfoot and midfoot screw fixation again noted with hardware in expected unchanged positions. Several fractured screws are again noted and grossly unchanged. Alignment is unchanged. Background osteoarthritic changes redemonstrated. Prominent plantar calcaneal enthesophyte. Soft tissues: No tibiotalar joint effusion. Achilles tendon appears normal. IMPRESSION: Stable postsurgical sequelae and bony alignment. Dictated by: Wilmer Wood Eduardo Interpreted: Shantanu Burr MD on 12/29/2020 at 16:21 Transcribed by: ELEAZAR on 12/29/2020 at 16:23 Approved by: Shantanu Burr M.D. on 12/29/2020 at 18:08
== END ==
PROVIDERS: Family Provider Family Medicine; PCP Family Medicine; Referring Provider Family Medicine; Visit Provider Family Medicine
DX: M77.32 Calcaneal spur, left foot (principal); M21.40 Flat foot [pes planus] (acquired), unspecified foot; Z98.890 Other specified postprocedural states
CPT/HCPCS: 73610; 73630

== ENCOUNTER → 2021-02-04 12:53 | Outpatient (CLI) | payer OTHER, SELFPAY ==
[2020-06-11 06:50] VITALS: BMI 34.0
--- NOTE | 2021-02-04 12:55 | DI.RAD.S_ITS ---
PROCEDURE: XR KNEE RT 3V INDICATIONS: S/P fall TECHNIQUE: 3 views of the knee were acquired. COMPARISON: [facility], CR, XR KNEE LT 3V, 03/17/2019, 11:54. FINDINGS: Bones: No fractures or dislocations. No suspicious bony lesions. Soft tissues: No joint effusion. No suspicious soft tissue calcifications. IMPRESSION: No trauma found. Dictated by: Huy Lowery M.D. on 02/04/2021 at 13:09 Approved by: Huy Lowery M.D. on 02/04/2021 at 13:10
== END ==
PROVIDERS: Family Provider Family Medicine; PCP Family Medicine; Referring Provider Physician Assistant; Visit Provider Physician Assistant
DX: M25.561 Pain in right knee (principal)
CPT/HCPCS: 73562

== ENCOUNTER → 2021-02-08 10:24 | Outpatient (CLI) | payer OTHER, SELFPAY ==
[2020-06-11 06:50] VITALS: BMI 34.0
[2021-02-08 10:41] LABS: Add Manual Diff / Slide Review NO; Basophils Absolute Auto 100 /uL (0-100); Basophils Percent Auto 0.9 % (0-2); Eosinophils Absolute Auto 300 /uL (0-450); Eosinophils Percent Auto 2.4 % (2-4); Hematocrit 39.9 % (36-46); Hemoglobin 13.6 g/dL (12.0-16.0); Lymphocytes Absolute Auto 1800 /uL (1100-4500); Mean Corpuscular Hemoglobin 29.5 PG (26-34); Mean Corpuscular Volume 86.7 fL (80-100); Monocytes Absolute Auto 600 /uL (0-900); Monocytes Percent Auto 4.9 % (3-14); Neutrophils Absolute Auto 9500 /uL (1500-7000); Neutrophils Percent Auto 76.8 % (50-75); Platelet Count 344 X10^3/uL (150-400); Red Blood Cell Count 4.61 X10^6/uL (4.0-5.2); Red Cell Distribution Width 13.1 % (11.6-14.8); White Blood Cell Count 12.3 X10^3/uL (4.5-11.0)
[2021-02-08 11:01] LABS: Alanine Aminotransferase 37 IU/L (<35); Albumin 3.9 g/dL (3.5-5.0); Albumin Globulin Ratio 1.1 (1.0-2.8); Alkaline Phosphatase 60 U/L (38-126); Aspartate Aminotransferase 47 IU/L (14-36); BUN Creatinine Ratio 16.4 (6-22); Bilirubin Total 0.5 mg/dL (0.2-1.3); Blood Urea Nitrogen 9 mg/dL (7-17); Carbon Dioxide 23 mmol/L (22-32); Chloride 106 mmol/L (98-107); Estimated Glomerular Filt Rate > 60.0 mL/min (>60); Globulin 3.4 g/dL (1.7-4.1); Glucose 134 mg/dL (70-100); HEMOLYSIS < 15 (0-50); Potassium 4.4 mmol/L (3.4-5.1); Sodium 137 mmol/L (137-145); Total Protein 7.3 g/dL (6.3-8.2)
[2021-02-08 11:13] LABS: HEMOLYSIS < 15 (0-50); Iron 63 ug/dL (37-170)
[2021-02-08 11:24] LABS: Percent Iron Saturation 20 % (15-50); Total Iron Binding Capacity 322 ug/dL (265-497); Transferrin 241 mg/dL (206-381)
[2021-02-08 11:35] LABS: Ferritin 190 ng/mL (6-137)
[2021-02-08 12:18] LABS: Cholesterol 211 mg/dL (140-199); HDL Cholesterol 34 mg/dL (40-60); LDL Cholesterol Calculated 142 mg/dL (<100); Triglycerides 177 mg/dL (35-150)
[2021-02-08 13:25] LABS: TSH w/ Reflex to FT4 2.64 uIU/mL (0.47-4.68)
== END ==
PROVIDERS: Internal Medicine Hematology & Oncology; Family Provider Family Medicine; PCP Family Medicine; Referring Provider Family Medicine; Visit Provider Family Medicine
DX: D50.9 Iron deficiency anemia, unspecified (principal); F32.9 Major depressive disorder, single episode, unspecified; M21.40 Flat foot [pes planus] (acquired), unspecified foot; Z90.710 Acquired absence of both cervix and uterus; Z13.220 Encounter for screening for lipoid disorders
CPT/HCPCS: 36415; 80053; 80061; 82728; 83540; 83550; 84443; 85025

== ENCOUNTER → 2021-03-15 09:29 | Outpatient (CLI) | payer OTHER, SELFPAY ==
[2020-06-11 06:50] VITALS: BMI 34.0
--- NOTE | 2021-03-15 09:31 | DIET.CONS ---
Dietary Consultation Note Assessment: 45y F attending [address] visit for help c iron deficiency anemia and weight gain secondary to PCOS. Pt had hysterectomy (preserved ovaries) secondary to significant menses and has been receiving blood transfusions from oncology dept. After 3mo check up, pts iron panel looked good, no need for further transfusions at this time. Pt attended PCP visit finding she has HLD, NAFLD, HTN, elevated FBG. Since then pt started detox diet, was 199# with BMI 34 and today weighs in at 182# with BMI 31.5. 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 Their culture means pt caretakes everyone. Pt has limited ability to exercise secondary to plates and screws in left foot. wants to start work out routine with son between football season interested in swimming but hasn't seen difference in past, gym closed over past year would have toast and tea c breakfast 4pm tea and snack dinner when son got home from football Started 54D: eats 2-9pm window drinks lemon lesly tea first week- no dairy, no carbs, no sugar, no fruit, no beans, no starchy veggies Next two weeks: introduce beans, 100% wheat, no simple sugars, no dairy, only kiwi/strawberry/blueberry feels she is not drinking enough water B: lemon lesly tea L: big green salad c two boiled eggs c 1 tsp sesame oil dressing D: quick stir mckeon with chicken breast or tofu, soups, burrito bowl no chips Pt has found removing dairy reduced aches and pains, now smaller portion sizes mean less acid reflux Ht: 5'4 Wt: 182# BMI: 31.5 UBW: 195# Nutrition Diagnosis: 1. altered nutrition related laboratory values r/t Iron deficiency Anemia aeb pt recently s/p hysterectomy secondary to heavy menses, pt receiving blood transfusions c oncology dept. 2. difficulty losing weight r/t endocrine dysfunction aeb pt has PCOS, BMI 31.5, pt previous diet high in dietary fat and carbohydrates like chapati and rice. Interventions: 1. Provided handout on iron content of foods. Pt eats lentil daal daily and other high iron foods. Pts anemia mostly resolved with hysterectomy. 2. Reinforced pts good effort in starting nutrition plan for diet and lifestyle change. Worked c pt on refining her current diet to continue it for next month or two until pt arrives at body weight she is happy with (likely ~165#). 3. Reiterated importance of strength training and physical activity to change fat mass to muscle mass. Pt has some exercise routines she is considering which she will start to implement over next several weeks. Monitoring/Evaluations: f/u in 4 weeks to problem solve barriers and act as accountability
== END ==
PROVIDERS: Family Provider Family Medicine; PCP Family Medicine; Referring Provider Family Medicine; Visit Provider Family Medicine
DX: D50.9 Iron deficiency anemia, unspecified (principal); E28.2 Polycystic ovarian syndrome; E66.9 Obesity, unspecified; Z68.31 Body mass index [BMI] 31.0-31.9, adult; Z71.3 Dietary counseling and surveillance
CPT/HCPCS: 97802

== ENCOUNTER → 2021-04-12 09:25 | Outpatient (CLI) | payer OTHER, SELFPAY ==
[2020-06-11 06:50] VITALS: BMI 34.0
--- NOTE | 2021-04-12 09:28 | DIET.PN1 ---
Dietary Progress Note 45y F [address] f/u for help with weight loss and iron deficiency anemia. Pt started eating more lentils and black beans since last visit. Noticed weight only went down 2# in 4w, however pt down 15# in three months and can feel her body is changing shape for the better. Ht: 5'4 Wt: 180# (-2# in 1mo) BMI: 31.3 UBW: 195# Pt's coming for visit this weekend for a week. She will cook traditional meals but is going to be mindful on her portion sizes and ensuring enough vegetables. Pt plans to do a week of her detox diet after he leaves and likely continue one week each month until she hits her goal weight of 165#. Pt getting bored with eating chicken breast. Nutrition Diagnosis: 1. altered nutrition related laboratory values r/t Iron deficiency Anemia aeb pt recently s/p hysterectomy secondary to heavy menses, pt receiving blood transfusions c oncology dept. 2. difficulty losing weight r/t endocrine dysfunction aeb pt has PCOS, BMI 31.5, pt previous diet high in dietary fat and carbohydrates like chapati and rice. Interventions: 1. Reinforced pts good efforts. Talked through pts husbands visit for meal planning and ensuring healthy intake. Provided pt handout on low fat, low kcal protein sources so pt can mix up her proteins to reduce feeling of being bored with chicken. Monitoring/Evaluations: f/u in 6w to assess progress and problem solve barriers. Electronically Signed by: Lory Strauss 04/12/21 09:28 Clinical Dietitian [address] [address]
== END ==
PROVIDERS: Family Provider Family Medicine; PCP Family Medicine; Referring Provider Family Medicine; Visit Provider Family Medicine
DX: E66.9 Obesity, unspecified (principal); D50.9 Iron deficiency anemia, unspecified; Z71.3 Dietary counseling and surveillance
CPT/HCPCS: 97803

== ENCOUNTER → 2021-06-07 10:25 | Outpatient (CLI) | payer OTHER, SELFPAY ==
[2020-06-11 06:50] VITALS: BMI 34.0
--- NOTE | 2021-06-07 10:33 | DIET.PN1 ---
Dietary Progress Note 45y F [address] f/u for help with blood loss anemia and abnormal weight gain. 176# (-4# in 6w, -19# in 3mo) Pt feeling stressed, having constipation secondary to a month of travel and not hydrating enough. Pts MIL in for surgery tomorrow which is scary for the family as her LEE declined after his surgery and never came back home. Pt having stress about son's progress in school. All these stressors are leading to her forgetting to drink water and not meal planning for the week. Pt will make batch vegetable soup to have on hand next week and will purchase thermos to keep her hot tea in. Pt is happy about her weight loss thus far and felt good in her denzel at family wedding in May. f/u in 8w to assess progress and problem solve barriers. Electronically Signed by: Lory Strauss 06/07/21 10:33 Clinical Dietitian [address] [place] [address]
== END ==
PROVIDERS: Family Provider Family Medicine; PCP Family Medicine; Referring Provider Family Medicine; Visit Provider Family Medicine
DX: D64.89 Other specified anemias (principal); R63.5 Abnormal weight gain; Z71.3 Dietary counseling and surveillance
CPT/HCPCS: 97803

== ENCOUNTER → 2022-07-05 09:31 | Outpatient (CLI) | payer OTHER, SELFPAY ==
[2020-06-11 06:50] VITALS: BMI 34.0
--- NOTE | 2022-07-05 09:33 | DI.RAD.S_ITS ---
PROCEDURE: XR CHEST 2V INDICATIONS: post-covid dyspnea TECHNIQUE: 2 views of the chest were acquired. COMPARISON: None. FINDINGS: Surgical changes and devices: None. Lungs and pleura: Lungs are clear. No pleural effusions or pneumothorax. Mediastinum: Mediastinal contours are normal. Heart size is normal. Bones and chest wall: No suspicious bony abnormalities. Soft tissues appear unremarkable. IMPRESSION: No acute cardiopulmonary abnormality. Dictated by: Shantanu Burr M.D. on 07/05/2022 at 10:12 Approved by: Shantanu Burr M.D. on 07/05/2022 at 10:13
[2022-07-05 10:43] LABS: Add Manual Diff / Slide Review NO; Basophils Absolute Auto 100 /uL (0-100); Basophils Percent Auto 0.5 % (0-2); Eosinophils Absolute Auto 200 /uL (0-450); Eosinophils Percent Auto 1.6 % (2-4); Hematocrit 38.5 % (36-46); Hemoglobin 12.8 g/dL (12.0-16.0); Lymphocytes Absolute Auto 2400 /uL (1100-4500); Lymphocytes Percent Auto 21.2 % (25-40); Mean Corpuscular HGB Conc 33.3 % (30-36); Mean Corpuscular Hemoglobin 28.3 PG (26-34); Mean Corpuscular Volume 85.1 fL (80-100); Monocytes Absolute Auto 600 /uL (0-900); Monocytes Percent Auto 5.7 % (3-14); Neutrophils Absolute Auto 8000 /uL (1500-7000); Platelet Count 323 X10^3/uL (150-400); Red Blood Cell Count 4.52 X10^6/uL (4.0-5.2); Red Cell Distribution Width 12.9 % (11.6-14.8); White Blood Cell Count 11.3 X10^3/uL (4.5-11.0)
[2022-07-05 10:50] LABS: HEMOLYSIS < 15 (0-50); Iron 93 ug/dL (37-170)
[2022-07-05 10:52] LABS: Alanine Aminotransferase 26 IU/L (<35); Albumin 4.1 g/dL (3.5-5.0); Albumin Globulin Ratio 1.1 (1.0-2.8); Alkaline Phosphatase 68 U/L (38-126); Aspartate Aminotransferase 25 IU/L (14-36); BUN Creatinine Ratio 15.5 (6-22); Bilirubin Total 0.6 mg/dL (0.2-1.3); Blood Urea Nitrogen 9 mg/dL (7-17); Calcium 8.7 mg/dL (8.4-10.2); Carbon Dioxide 28 mmol/L (22-32); Chloride 102 mmol/L (98-107); Cholesterol 219 mg/dL (140-199); Estimated Glomerular Filt Rate > 60 mL/min (>60); Globulin 3.7 g/dL (1.7-4.1); Glucose 131 mg/dL (70-100); HDL Cholesterol 39 mg/dL (40-60); HEMOLYSIS < 15 (0-50); Hemoglobin A1C% w Est Avg Glu 6.9 % (4.0-6.0); LDL Cholesterol Calculated 131 mg/dL (<100); Potassium 3.9 mmol/L (3.4-5.1); Sodium 137 mmol/L (137-145); Total Protein 7.8 g/dL (6.3-8.2); Triglycerides 245 mg/dL (35-150)
[2022-07-05 11:04] LABS: Percent Iron Saturation 28 % (15-50); Total Iron Binding Capacity 335 ug/dL (265-497); Transferrin 254 mg/dL (206-381)
[2022-07-05 11:19] LABS: TSH w/ Reflex to FT4 3.31 uIU/mL (0.47-4.68)
[2022-07-05 11:23] LABS: Ferritin 102 ng/mL (6-137)
[2022-07-07 18:43] LABS: Deamidated Gliadin Ab IgA 3 units (0-19); Deamidated Gliadin Ab IgG 5 units (0-19); Immunoglobulin A,Qn 251 mg/dL (87-352); t-Transglutaminase IgA 15 U/mL (0-3)
== END ==
PROVIDERS: Family Provider Family Medicine; PCP Family Medicine; Referring Provider Family Medicine; Visit Provider Family Medicine
DX: R06.09 Other forms of dyspnea (principal); U09.9 Post COVID-19 condition, unspecified; K76.0 Fatty (change of) liver, not elsewhere classified; R73.9 Hyperglycemia, unspecified; D50.9 Iron deficiency anemia, unspecified; D64.9 Anemia, unspecified; E78.5 Hyperlipidemia, unspecified; F32.9 Major depressive disorder, single episode, unspecified; R74.8 Abnormal levels of other serum enzymes; R14.0 Abdominal distension (gaseous)
CPT/HCPCS: 36415; 71046; 80053; 80061; 82728; 82784; 83036; 83516; 83540; 83550; 84443; 85025

== ENCOUNTER → 2022-08-04 12:20 | Outpatient (CLI) | payer OTHER, SELFPAY ==
[2020-06-11 06:50] VITALS: BMI 34.0
--- NOTE | 2022-08-09 08:39 | PM.PFT.1 ---
Pulmonary Function Test Referral & Results Date Patient Seen: 08/04/22 Requesting provider: Cory Roldan Results: The spirometry demonstrates an FVC of 2.42 L which is 69% of predicted. The FEV1 was measured at 2.11 L which is 74% of predicted. The FEV1/FVC ratio was 87 which is 107% of predicted. Following the administration of bronchodilator there was no appreciable change. Interpretation: This study which was done as forced spirometry only demonstrates mild obstructive lung disease based on reduction FEV1 although FEV1/FVC ratio is relatively preserved. There is no evidence of benefit following bronchodilator administration Since no lung volumes were performed, unable to assess whether some element of restrictive lung disease maybe contributing to the abnormal FEV1 above Clinical correlation suggested
== END ==
PROVIDERS: Family Provider Family Medicine; PCP Family Medicine; Referring Provider Family Medicine; Visit Provider Family Medicine
DX: R06.09 Other forms of dyspnea (principal); U09.9 Post COVID-19 condition, unspecified
CPT/HCPCS: 94060

== ENCOUNTER → 2022-08-10 08:23 | Outpatient (CLI) | payer OTHER, SELFPAY ==
[2020-06-11 06:50] VITALS: BMI 34.0
--- NOTE | 2022-08-10 13:12 | DIET.OUTPTC ---
Addendum entered by Lory Strauss 08/10/22 18:17: I agree with assessment from Service Support Representative below. Original Note: Dietary Outpatient Consultation Note Consultation Date: 08/10/2022 46 y/o F attending RD f/u for help with obesity and elevated blood glucose. Pt currently wts 203 lbs, a 13% wt gain from visit 1 year ago. 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 Pt lives with her 2 kids (both in HS), and mother in law. runs hotel in [place] who she sees every few months. Mother and father visits for half the year from [place]. Usually, she cooks two different meals a night to please her family. Her son is a picky eater which makes cooking one meal difficult. When mother is in town, she stresses about keeping up with chores at night. Recent blood tests show gluten sensitivity (Tiss Transglutamin IgA 15), elevated glucose (>130), and high A1c (6.9). Pt has taken out most gluten and has noticed significant difference in bloating, acid reflux, and swollen fingers. Diet recall: Pt mentions she likes to make Monegasque dishes (dahl), basamati rice, chicken, lentils, fruit (berries, apples). Pt still struggles with water intake. However, recently she has been consuming spice/herb infused water with benja seeds. Nutrition Diagnosis: Altered laboratory values (A1c, BMI, Tiss Transglutamin) r/t stressors impacting self care aeb 13% wt gain in 1 year, A1c 6.9, pt working 16 hr days x1 yr with little time for breaks, pt with intermittent gluten exposure. Interventions: 1. Provided gluten handout to support with eliminating gluten. 2. Implemented previous diet from past visits and set goals to aid in wt loss. Monitoring/Evaluation: f/u in 4 weeks to monitor progress. Electronically Signed by: Belkis Hernandez 08/10/22 13:12 Clinical Dietitian [address] [address]
== END ==
PROVIDERS: Absent Provider Family Medicine; Family Provider Family Medicine; PCP Family Medicine; Referring Provider Family Medicine
DX: E66.9 Obesity, unspecified (principal); R73.9 Hyperglycemia, unspecified; Z71.3 Dietary counseling and surveillance; R74.8 Abnormal levels of other serum enzymes; E78.5 Hyperlipidemia, unspecified
CPT/HCPCS: 97802

== ENCOUNTER → 2022-08-30 08:27 | Outpatient (CLI) | payer OTHER, SELFPAY ==
[2020-06-11 06:50] VITALS: BMI 34.0
[2022-08-30 09:29] LABS: Hemoglobin A1C% w Est Avg Glu 6.8 % (4.0-6.0)
[2022-08-30 09:42] LABS: Alanine Aminotransferase 27 IU/L (<35); Albumin Globulin Ratio 1.1 (1.0-2.8); Alkaline Phosphatase 73 U/L (38-126); Aspartate Aminotransferase 26 IU/L (14-36); BUN Creatinine Ratio 20.3 (6-22); Bilirubin Total 0.5 mg/dL (0.2-1.3); Blood Urea Nitrogen 12 mg/dL (7-17); Calcium 8.6 mg/dL (8.4-10.2); Carbon Dioxide 23 mmol/L (22-32); Chloride 103 mmol/L (98-107); Estimated Glomerular Filt Rate > 60 mL/min (>60); Globulin 3.6 g/dL (1.7-4.1); Glucose 140 mg/dL (70-100); HEMOLYSIS < 15 (0-50); Potassium 4.1 mmol/L (3.4-5.1); Sodium 138 mmol/L (137-145); Total Protein 7.6 g/dL (6.3-8.2)
== END ==
PROVIDERS: Family Provider Family Medicine; PCP Family Medicine; Referring Provider Family Medicine; Visit Provider Family Medicine
DX: E78.2 Mixed hyperlipidemia (principal); R73.9 Hyperglycemia, unspecified
CPT/HCPCS: 36415; 80053; 83036

== ENCOUNTER → 2022-09-07 10:57 | Outpatient (CLI) | payer OTHER, SELFPAY ==
[2020-06-11 06:50] VITALS: BMI 34.0
--- NOTE | 2022-09-11 10:48 | DIET.OUTPTC ---
Dietary Outpatient Consultation Note Consultation Date: 09/11/[address] 46[address] f/u for preDM, HLD and weight management. Pt desires meal plan to follow and information on medical management of obesity as well as bariatric surgery. Interventions: 1. Educated pt on variety of medications to support weight management including: phentermine, Ozempic, Wegovy- insurance requirements, efficacy and side effects. Pt will check with insurance to see if any covered. 2. Educated pt on bariatric surgery options, insurance requirements, efficacy, and side effects. Pt will check with insurance to see if any covered. 3. Discussed meal plan options. Reiterated to pt best plan is to create meal plan based on her familiar foods rather than eating foods outside her norm so she can continue weight management over the supervisor intermediates to avoid rebound weight gain. Pt will log PO intake for the next week and bring to next session. Scheduled f/u in 1w to create meal plan. Electronically Signed by: Lory Strauss 09/11/22 10:48 Clinical Dietitian [address] [id number]
[2022-09-14 09:09] VITALS: BMI 34.8
== END ==
PROVIDERS: Family Provider Family Medicine; PCP Family Medicine; Referring Provider Family Medicine; Visit Provider Family Medicine
DX: R73.03 Prediabetes (principal); E78.5 Hyperlipidemia, unspecified; Z71.3 Dietary counseling and surveillance
CPT/HCPCS: 97803

== ENCOUNTER → 2022-11-01 08:39 | Outpatient (CLI) | payer OTHER, SELFPAY ==
[2020-06-11 06:50] VITALS: BMI 34.0
[2022-11-01 09:36] LABS: Add Manual Diff / Slide Review NO; Basophils Absolute Auto 100 /uL (0-100); Basophils Percent Auto 0.6 % (0-2); Eosinophils Absolute Auto 200 /uL (0-450); Eosinophils Percent Auto 1.6 % (2-4); Hematocrit 35.6 % (36-46); Hemoglobin 12.3 g/dL (12.0-16.0); Lymphocytes Absolute Auto 2300 /uL (1100-4500); Lymphocytes Percent Auto 22.1 % (25-40); Mean Corpuscular HGB Conc 34.4 % (30-36); Mean Corpuscular Hemoglobin 28.7 PG (26-34); Mean Corpuscular Volume 83.2 fL (80-100); Monocytes Absolute Auto 700 /uL (0-900); Monocytes Percent Auto 6.7 % (3-14); Neutrophils Absolute Auto 7100 /uL (1500-7000); Platelet Count 332 X10^3/uL (150-400); Red Blood Cell Count 4.27 X10^6/uL (4.0-5.2); Red Cell Distribution Width 13.2 % (11.6-14.8); White Blood Cell Count 10.3 X10^3/uL (4.5-11.0)
[2022-11-01 09:56] LABS: Alanine Aminotransferase 26 IU/L (<35); Albumin 3.8 g/dL (3.5-5.0); Albumin Globulin Ratio 1.3 (1.0-2.8); Alkaline Phosphatase 67 U/L (38-126); Aspartate Aminotransferase 22 IU/L (14-36); BUN Creatinine Ratio 20.7 (6-22); Bilirubin Total 0.5 mg/dL (0.2-1.3); Blood Urea Nitrogen 12 mg/dL (7-17); Calcium 8.6 mg/dL (8.4-10.2); Carbon Dioxide 23 mmol/L (22-32); Chloride 105 mmol/L (98-107); Estimated Glomerular Filt Rate > 60 mL/min (>60); Glucose 129 mg/dL (70-100); HEMOLYSIS < 15 (0-50); Potassium 4.1 mmol/L (3.4-5.1); Sodium 137 mmol/L (137-145); Total Protein 6.8 g/dL (6.3-8.2)
[2022-11-02 15:51] LABS: x Labcorp Estim. Avg Glu (eAG) 154 mg/dL (.)
== END ==
PROVIDERS: Family Provider Family Medicine; PCP Family Medicine; Referring Provider Family Medicine; Visit Provider Family Medicine
DX: E11.9 Type 2 diabetes mellitus without complications (principal); R74.8 Abnormal levels of other serum enzymes; E78.5 Hyperlipidemia, unspecified; D64.9 Anemia, unspecified
CPT/HCPCS: 36415; 80053; 83036; 85025

== ENCOUNTER → 2023-02-13 10:29 | Outpatient (CLI) | payer OTHER, SELFPAY ==
[2020-06-11 06:50] VITALS: BMI 34.0
[2023-02-13 11:01] LABS: Add Manual Diff / Slide Review NO; Basophils Absolute Auto 100 /uL (0-100); Basophils Percent Auto 1.2 % (0-2); Eosinophils Absolute Auto 200 /uL (0-450); Eosinophils Percent Auto 1.7 % (2-4); Hematocrit 37.6 % (36-46); Hemoglobin 12.9 g/dL (12.0-16.0); Lymphocytes Absolute Auto 2300 /uL (1100-4500); Lymphocytes Percent Auto 21.3 % (25-40); Mean Corpuscular HGB Conc 34.4 % (30-36); Mean Corpuscular Hemoglobin 28.8 PG (26-34); Mean Corpuscular Volume 83.6 fL (80-100); Monocytes Absolute Auto 600 /uL (0-900); Monocytes Percent Auto 5.7 % (3-14); Neutrophils Absolute Auto 7400 /uL (1500-7000); Neutrophils Percent Auto 70.1 % (50-75); Platelet Count 342 X10^3/uL (150-400); Red Blood Cell Count 4.49 X10^6/uL (4.0-5.2); Red Cell Distribution Width 12.9 % (11.6-14.8); White Blood Cell Count 10.6 X10^3/uL (4.5-11.0)
[2023-02-13 11:25] LABS: Alanine Aminotransferase 20 IU/L (<35); Albumin Globulin Ratio 1.3 (1.0-2.8); Alkaline Phosphatase 66 U/L (38-126); Aspartate Aminotransferase 22 IU/L (14-36); BUN Creatinine Ratio 17.2 (6-22); Bilirubin Total 0.7 mg/dL (0.2-1.3); Blood Urea Nitrogen 11 mg/dL (7-17); Carbon Dioxide 28 mmol/L (22-32); Chloride 103 mmol/L (98-107); Cholesterol 216 mg/dL (140-199); Estimated Glomerular Filt Rate > 60 mL/min (>60); Globulin 3.2 g/dL (1.7-4.1); Glucose 128 mg/dL (70-100); HDL Cholesterol 38 mg/dL (40-60); HEMOLYSIS < 15 (0-50); LDL Cholesterol Calculated 145 mg/dL (<100); Potassium 4.5 mmol/L (3.4-5.1); Sodium 138 mmol/L (137-145); Total Protein 7.2 g/dL (6.3-8.2); Triglycerides 163 mg/dL (35-150)
[2023-02-13 11:51] LABS: TSH w/ Reflex to FT4 1.87 uIU/mL (0.47-4.68)
[2023-02-13 11:55] LABS: Ferritin 107 ng/mL (6-137)
[2023-02-14 04:24] LABS: x Labcorp Estim. Avg Glu (eAG) 151 mg/dL (.); x Labcorp Hemoglobin A1c 6.9 % (4.8-5.6)
== END ==
PROVIDERS: Family Provider Family Medicine; PCP Family Medicine; Referring Provider Family Medicine; Visit Provider Family Medicine
DX: D64.9 Anemia, unspecified (principal); E78.5 Hyperlipidemia, unspecified; E11.9 Type 2 diabetes mellitus without complications; R74.8 Abnormal levels of other serum enzymes
CPT/HCPCS: 36415; 80053; 80061; 82728; 83036; 84443; 85025

== ENCOUNTER 2023-05-09 13:10 | Emergency (ER) | payer OTHER, SELFPAY ==
[2020-06-11 06:50] VITALS: BMI 34.0
[2023-05-09 13:21] VITALS: BP 140/93; PULSE 89; RESP 16; TEMP 36.6; O2SAT 99; BMI 35.4
--- NOTE | 2023-05-09 13:24 | DI.RAD.S_ITS ---
PROCEDURE: XR FOOT LT MIN 3V INDICATIONS: missed step, left great toe and foot pain TECHNIQUE: 3 views of the foot were acquired. COMPARISON: [facility], CR, XR FOOT LT MIN 3V, 12/29/2020, 16:02. FINDINGS: Bones: No fractures or dislocations. No suspicious bony lesions. Multiple tarso talar fixation screws are present. Previous hardware fractures are again identified. No interval change. Prominent calcaneal spur. Soft tissues: No tibiotalar joint effusion. Achilles tendon appears normal. IMPRESSION: No visualized acute fracture or dislocation. However, if clinical concern and/or pain persist, short interval imaging followup in 7-10 days is recommended, as occult injury cannot be definitively excluded. Dictated by: Nubia Park M.D. on 05/09/2023 at 15:16 Approved by: Nubia Park M.D. on 05/09/2023 at 15:17
[2023-05-09 15:23] VITALS: BP 135/88; PULSE 87; RESP 18; O2SAT 99
--- NOTE | 2023-05-09 15:43 | ED_ITS ---
HPI - Extremity Injury (Lower) <Cayla Atkins PA-C - Last Filed: 05/09/23 15:48> General Chief Complaint: Extremity Injury, Lower Stated Complaint: possible broken big toe on L foot Time Seen by Provider: 05/09/23 15:19 Source: patient Mode of arrival: Ambulatory History of Present Illness HPI Narrative: Patient is a 47-year-old female with a history left foot surgery who presents with left great toe pain. She was walking down the stairs and felt like her toe and her foot went different directions. Her toe is tender over the MTP joint and is swollen. She has not taken any medications or tried any therapy. She has significant foot pain at baseline and wears only Crocs or slippers. She is worried about her toe being fractured or complications with her existing hardware. Related Data Home Medications Medication Instructions Recorded Confirmed Disabled Parking Permit 1 hussein Not Applicable DIRECTED 06/09/20 02/13/23 Previous Rx's Medication Instructions Recorded Parking Permit... #1 ea 07/25/22 albuterol sulfate 90 mcg/actuation 2 puff inhalation Q6H PRN 08/25/22 aerosol inhaler shortness of breath or wheezing #8.5 grams atorvastatin 40 mg tablet (Lipitor) 40 mg PO BEDTIME #90 tabs 08/31/22 semaglutide 0.25 mg or 0.5 mg (2 0.25 mg (0.368 mL) SUBCUT QWEEK #3 02/13/23 mg/3 mL) subcutaneous pen injector mL (Ozempic) Allergies Allergy/AdvReac Type Severity Reaction Status Date / Time oxycodone [OXYCODONE] AdvReac Mild Woozy, Verified 05/09/23 13:23 nausea Review of Systems <Cayla Atkins PA-C - Last Filed: 05/09/23 15:48> Review of Systems ROS Unobtainable: All systems reviewed & are unremarkable except as noted in HPI and below Patient History <Cayla Atkins PA-C - Last Filed: 05/09/23 15:48> Medical History Diabetes mellitus Elevated liver enzymes Hyperlipidemia Neoplasm of uncertain behavior of skin Acquired flat foot Foot pain (~2010) Irregular menstrual cycle (~1989) Surgical History Status post hysteroscopic polypectomy (06/13/19) History of foot surgery (~2012) History of foot surgery (~2010) Status post discectomy (~2010) Status post delivery (~2008) Status post delivery (~2005) Social History household members: spouse and children Smoking Status: Never smoker alcohol intake: current substance use type: marijuana (for feet pain.) Smoking Status: Never smoker alcohol intake frequency: holidays/special occasions only Substance Use Type: marijuana Exam <Cayla Atkins PA-C - Last Filed: 05/09/23 15:48> Narrative Exam Narrative: GENERAL: 47 year old patient appears stated age. Well-developed patient, in no distress. NEURO: AOx3. HEAD: Atraumatic. Normocephalic. EYES: Pupils equal round and reactive. Extraocular motions intact. No scleral icterus. No injection or drainage. ENT: Nose without bleeding or purulent drainage. Airway patent. RESPIRATORY: No distress. EXTREMITIES: Mild edema of left great toe, especially over MTP joint. Medial MTP joint is tender. There is no erythema or break in the skin. Range of motion is limited by pain. There is no visible deformity. SKIN: No rash or erythema of visible areas. Well-healed surgical scars. Initial Vital Signs Initial Vital Signs: Vital Signs Temperature 97.8 F 05/09/23 13:21 Pulse Rate 89 05/09/23 13:21 Respiratory Rate 16 05/09/23 13:21 Blood Pressure 140/93 H 05/09/23 13:21 Pulse Oximetry 99 05/09/23 13:21 Oxygen Delivery Method Room Air 05/09/23 13:21 <David Rabago DO - Last Filed: 05/09/23 16:18> Initial Vital Signs Initial Vital Signs: Vital Signs Temperature 97.8 F 05/09/23 13:21 Pulse Rate 89 05/09/23 13:21 Respiratory Rate 16 05/09/23 13:21 Blood Pressure 140/93 H 05/09/23 13:21 Pulse Oximetry 99 05/09/23 13:21 Oxygen Delivery Method Room Air 05/09/23 13:21 Course <Cayla Atkins PA-C - Last Filed: 05/09/23 15:48> Orders Ordered: ED Orders 05/09/23 13:24 XR foot LT min 3V Stat Discontinued Medications Acetaminophen (Acetaminophen 325 Mg Tablet) 975 mg PO NOW ONE Stop: 05/09/23 15:35 Last Admin: 05/09/23 15:46 Dose: 975 mg Documented By: SB Ibuprofen (Ibuprofen 400 Mg Tablet) 800 mg PO NOW ONE Stop: 05/09/23 15:35 Last Admin: 05/09/23 15:46 Dose: 800 mg Documented By: SB Vital Signs Vital signs: Vital Signs - 8 hr 05/09/23 13:21 05/09/23 15:23 Temperature 97.8 F Pulse Rate 89 87 Respiratory Rate 16 18 Blood Pressure 140/93 H 135/88 Pulse Oximetry 99 99 Oxygen Delivery Method Room Air Room Air <David Rabago DO - Last Filed: 05/09/23 16:18> Orders Ordered: ED Orders 05/09/23 13:24 XR foot LT min 3V Stat Discontinued Medications Acetaminophen (Acetaminophen 325 Mg Tablet) 975 mg PO NOW ONE Stop: 05/09/23 15:35 Last Admin: 05/09/23 15:46 Dose: 975 mg Documented By: SB Ibuprofen (Ibuprofen 400 Mg Tablet) 800 mg PO NOW ONE Stop: 05/09/23 15:35 Last Admin: 05/09/23 15:46 Dose: 800 mg Documented By: SB Vital Signs Vital signs: Vital Signs - 8 hr 05/09/23 13:21 05/09/23 15:23 Temperature 97.8 F Pulse Rate 89 87 Respiratory Rate 16 18 Blood Pressure 140/93 H 135/88 Pulse Oximetry 99 99 Oxygen Delivery Method Room Air Room Air MDM - Extremity Injury (Lower) <Cayla Atkins PA-C - Last Filed: 05/09/23 15:48> Imaging Data Extremity x-ray #1: Radiologist's Impression: PROCEDURE: XR FOOT LT MIN 3V INDICATIONS: missed step, left great toe and foot pain TECHNIQUE: 3 views of the foot were acquired. COMPARISON: [facility], , XR FOOT LT MIN 3V, 12/29/2020, 16:02. FINDINGS: Bones: No fractures or dislocations. No suspicious bony lesions. Multiple tarso talar fixation screws are present. Previous hardware fractures are again identified. No interval change. Prominent calcaneal spur. Soft tissues: No tibiotalar joint effusion. Achilles tendon appears normal. IMPRESSION: No visualized acute fracture or dislocation. However, if clinical concern and/or pain persist, short interval imaging followup in 7-10 days is recommended, as occult injury cannot be definitively excluded. Dictated by: Nubia Park M.D. on 05/09/2023 at 15:16 Approved by: Nubia Park M.D. on 05/09/2023 at 15:17 [facility] Narrative Medical decision making narrative: Multiple etiologies for patient's symptoms considered including, but not limited to: Fracture, dislocation, soft tissue injury, strain. X-ray without evidence of fracture or dislocation. Suspect strain at the MTP joint. Advised rest, ice, ibuprofen. If pain is not improving or gone in 2 weeks, reasonable to consider additional imaging. Patient medicated with Tylenol and ibuprofen emergency department. Patient's symptoms improved over duration of stay with above-stated therapies. Findings and discharge diagnosis discussed with patient/family followed by verbalization of understanding Return precautions discussed with patient/family whom verbalize understanding of diagnosis and plan Discharge Plan Departure Patient Disposition: Home Clinical Impression: Strain of great toe of left foot Qualifiers: Encounter type: initial encounter Qualified Code(s): S96.912A - Strain of unspecified muscle and tendon at ankle and foot level, left foot, initial encounter Instructions: How To Perform RICE (Rest, Ice, Compress, Elevate) Activity Restrictions/Additional Instructions: *You have been diagnosed with strain of the left great toe MTP joint. There is no evidence of fracture or dislocation on the xray. You have been diagnosed with a musculoskeletal injury. You are advised to use R: rest. take it easy and listen to your body! I: ice. apply ice for 20 minutes every 2 hours while awake. Do not put ice directly on the skin. C: compression. Gentle compression with blanca wrap or splint will decrease pain and swelling. E: elevation. Keep extremity elevated above the heart whenever possible. Use tylenol or ibuprofen for inflammation and pain. It is generally safe to take up to 3-4grams of tylenol in 24 hours, or 2400mg of ibuprofen in 24 hours. *What to do: *Please continue to take your regular medications as directed. [ ] New medication prescriptions sent to your pharmacy: [ ] [ ] New medication written as a paper prescription [x] No new medications given *Please follow up with your primary care provider in 2-3 days, call for an appointment. Let them know you were seen in the Emergency Department and that we ask that you be seen in follow up. We will electronically transmit a record of today's note if your PCP is in our system *If you do not have a primary care provider please contact the [facility] Resource line at [phone]. They will ask some questions about your medical history and help get you set up with a doctor in the community. *Return to Emergency Department if you should have any new, worsening or concerning symptoms, such as [fever greater than 101 F, shaking chills, worsening pain, persistent vomiting or other concerning symptoms]. Prescriptions: No Action (DME) Parking Permit... See Rx Instructions .ROUTE .MEDSUPPLY Qty: 1 0RF Rx Instructions: I find this patient to be medically disabled and qualified for Disabled Parking as indicated , and signed, on the Accompanying Disabled Parking Application for Individuals. albuterol sulfate 90 mcg/actuation HFA aerosol inhaler 2 puff inhalation Q6H PRN (Reason: shortness of breath or wheezing) Qty: 8.5 0RF Ozempic 0.25 mg or 0.5 mg (2 mg/3 mL) pen injector 0.25 mg SUBCUT QWEEK Qty: 3 1RF Rx Instructions: for 4 weeks; then increase to 0.5 mg every week. Did not tolerate metformin or jardiance. atorvastatin [Lipitor] 40 mg tablet 40 mg PO BEDTIME Qty: 90 3RF Disabled Parking Permit 1 hussein Not Applicable DIRECTED Referrals: Cory Roldan MD [Primary Care Provider] - Stand Alone Forms: Patient Portal/API ED Sign-out <David Rabago, DO - Last Filed: 05/09/23 16:18> Cosign ED Attending Cosignature Attestation: Dr Rabago Co-Sign Statement: I was available for consultation during this patient's emergency department visit. This chart is signed by myself for administrative purposes only. I did not have direct contact with this patient during this visit. They were seen independently by the APC.
[2023-05-09] MEDS: IBUPROFEN 400 MG TABLET 800 MG PO (15:46)
[2023-05-09] MEDS: ACETAMINOPHEN 325 MG TABLET 975 MG PO (15:46)
== END 2023-05-09 15:50 | disposition home or self-care (01) ==
PROVIDERS: Emergency Provider Physician Assistant; Family Provider Family Medicine; PCP Family Medicine
DX: S96.912A Strain of unspecified muscle and tendon at ankle and foot level, left foot, initial encounter (principal); X58.XXXA Exposure to other specified factors, initial encounter; Y93.01 Activity, walking, marching and hiking
CPT/HCPCS: 73630; 99283

== ENCOUNTER → 2023-05-16 08:37 | Outpatient (CLI) | payer OTHER, SELFPAY ==
[2020-06-11 06:50] VITALS: BMI 34.0
[2023-05-16 10:40] LABS: Cholesterol 190 mg/dL (140-199); HDL Cholesterol 39 mg/dL (40-60); LDL Cholesterol Calculated 123 mg/dL (<100); Triglycerides 141 mg/dL (35-150)
[2023-05-16 11:02] LABS: Hemoglobin A1C% w Est Avg Glu 6.4 % (4.0-6.0)
== END ==
PROVIDERS: Family Provider Family Medicine; PCP Family Medicine; Referring Provider Family Medicine; Visit Provider Family Medicine
DX: E11.9 Type 2 diabetes mellitus without complications (principal); R73.9 Hyperglycemia, unspecified
CPT/HCPCS: 36415; 80061; 83036

== ENCOUNTER → 2023-09-25 08:29 | Outpatient (CLI) | payer OTHER, SELFPAY ==
[2020-06-11 06:50] VITALS: BMI 34.0
[2023-09-25 10:10] LABS: Hemoglobin A1C% w Est Avg Glu 5.7 % (4.0-6.0)
[2023-09-25 10:47] LABS: Alanine Aminotransferase 17 IU/L (<35); Albumin 3.8 g/dL (3.5-5.0); Albumin Globulin Ratio 1.2 (1.0-2.8); Alkaline Phosphatase 62 U/L (38-126); Aspartate Aminotransferase 21 IU/L (14-36); BUN Creatinine Ratio 16.7 (6-22); Bilirubin Total 0.6 mg/dL (0.2-1.3); Blood Urea Nitrogen 10 mg/dL (7-17); Calcium 8.6 mg/dL (8.4-10.2); Carbon Dioxide 26 mmol/L (22-32); Chloride 108 mmol/L (98-107); Cholesterol 125 mg/dL (140-199); Estimated Glomerular Filt Rate > 60 mL/min (>60); Globulin 3.1 g/dL (1.7-4.1); Glucose 96 mg/dL (70-100); HDL Cholesterol 40 mg/dL (40-60); HEMOLYSIS < 15 (0-50); LDL Cholesterol Calculated 63 mg/dL (<100); Potassium 4.1 mmol/L (3.4-5.1); Sodium 138 mmol/L (137-145); Total Protein 6.9 g/dL (6.3-8.2); Triglycerides 110 mg/dL (35-150)
[2023-09-26 03:52] LABS: Apolipoprotein B 64 mg/dL (<90)
== END ==
PROVIDERS: Family Provider Family Medicine; PCP Family Medicine; Referring Provider Family Medicine; Visit Provider Family Medicine
DX: E11.9 Type 2 diabetes mellitus without complications (principal); E78.5 Hyperlipidemia, unspecified; R74.8 Abnormal levels of other serum enzymes; D64.9 Anemia, unspecified
CPT/HCPCS: 36415; 80053; 80061; 82172; 83036

== ENCOUNTER → 2023-10-15 11:18 | Outpatient (CLI) | payer OTHER, SELFPAY ==
[2020-06-11 06:50] VITALS: BMI 34.0
[2023-10-15 12:32] LABS: Add Manual Diff / Slide Review NO; Basophils Absolute Auto 100 /uL (0-100); Basophils Percent Auto 0.6 % (0-2); Eosinophils Absolute Auto 200 /uL (0-450); Eosinophils Percent Auto 1.5 % (2-4); Hematocrit 36.8 % (36-46); Hemoglobin 12.4 g/dL (12.0-16.0); Lymphocytes Absolute Auto 2500 /uL (1100-4500); Mean Corpuscular HGB Conc 33.6 % (30-36); Mean Corpuscular Hemoglobin 28.6 PG (26-34); Monocytes Absolute Auto 600 /uL (0-900); Monocytes Percent Auto 5.8 % (3-14); Neutrophils Absolute Auto 7500 /uL (1500-7000); Neutrophils Percent Auto 69.1 % (50-75); Platelet Count 328 X10^3/uL (150-400); Red Blood Cell Count 4.33 X10^6/uL (4.0-5.2); Red Cell Distribution Width 13.4 % (11.6-14.8); White Blood Cell Count 10.8 X10^3/uL (4.5-11.0)
[2023-10-15 13:28] LABS: HEMOLYSIS < 15 (0-50); Iron 75 ug/dL (37-170)
[2023-10-15 13:42] LABS: Percent Iron Saturation 22 % (15-50); Total Iron Binding Capacity 343 ug/dL (265-497)
[2023-10-15 13:44] LABS: Transferrin 274 mg/dL (206-381)
[2023-10-15 14:01] LABS: TSH w/ Reflex to FT4 1.93 uIU/mL (0.47-4.68)
[2023-10-15 14:12] LABS: Ferritin 62 ng/mL (6-137)
[2023-10-15 14:26] LABS: Vitamin B12 Reflex MMA if <400 221 pg/mL (239-931)
[2023-10-17 07:35] LABS: Methylmalonic Acid,Serum 163 nmol/L (0-378)
[2023-10-19 11:26] LABS: Percent Free Testosterone 2.51 % (0.50-2.80); Testosterone Free 0.53 ng/dL (0.10-0.85)
== END ==
PROVIDERS: Family Provider Family Medicine; PCP Family Medicine; Referring Provider Family Medicine; Visit Provider Family Medicine
DX: E11.9 Type 2 diabetes mellitus without complications (principal); D50.9 Iron deficiency anemia, unspecified; E78.5 Hyperlipidemia, unspecified; D64.9 Anemia, unspecified; G47.19 Other hypersomnia; R74.8 Abnormal levels of other serum enzymes; L68.0 Hirsutism; Z87.42 Personal history of other diseases of the female genital tract
CPT/HCPCS: 36415; 82607; 82728; 83540; 83550; 83921; 84402; 84403; 84443; 85025

== ENCOUNTER → 2023-12-10 15:31 | Outpatient (CLI) | payer OTHER, SELFPAY ==
[2020-06-11 06:50] VITALS: BMI 34.0
[2023-12-10 21:18] LABS: Hemoglobin A1C% w Est Avg Glu 5.7 % (4.0-6.0)
== END ==
PROVIDERS: Family Provider Family Medicine; PCP Family Medicine; Referring Provider Family Medicine; Visit Provider Family Medicine
DX: E11.9 Type 2 diabetes mellitus without complications (principal)
CPT/HCPCS: 36415; 83036